=== PATIENT | female | born 1965 | race Caucasian/White ===

== ENCOUNTER 2019-12-22 06:28 | Day surgery (SDC) | payer BC ==
[~2019-12-22 06:28] MED LIST: Lactated Ringers 1,000 ML IV SCH; Lidocaine 1%/Sod Bicarbonate in NS 8.4% 1 ML Syringe IDERM PRN; Sodium Chloride 0.9% 10 ML Syringe FLUSH PRN
--- NOTE | 2019-12-22 07:07 | PCM.PREANE ---
Preanesthetic Assessment - Procedure Proposed Procedure: Left knee video arthroscopy - Anesthesia/Transfusion/Family Hx Anesthesia History: Prior Anesthesia Without Reaction Family History of Anesthesia Reaction: No Transfusion History: No Prior Transfusion(s) - Review of Systems General: No Symptoms Pulmonary: No Symptoms Cardiovascular: No Symptoms Gastrointestinal: No Symptoms Neurological: No Symptoms Other: Reports: Thyroid Problems (partial thyroid ectomy) - Physical Assessment NPO Status Date: 12/21/19 NPO Status Time: 00:00 Vital Signs: Last Vital Signs Temp 37.4 C 12/22/19 06:30 Pulse 63 12/22/19 06:30 Resp 16 12/22/19 06:30 BP 129/81 12/22/19 06:30 Pulse Ox 98 12/22/19 06:30 Height: 1.65 m Weight: 73.936 kg ASA Class: 2 Mental Status: Alert & Oriented x3 Airway Class: Mallampati = 1 Dentition: Reports: Normal Dentition, [place](s) Thyro-Mental Finger Breadths: 3 Mouth Opening Finger Breadths: 3 ROM/Head Extension: Full Lungs: Clear to Auscultation, Normal Respiratory Effort Cardiovascular: Regular Rate, Regular Rhythm - Lab Values: Laboratory Last Values MRSA (PCR) Negative 12/14/19 15:20 - Allergies Allergies/Adverse Reactions: Allergies Allergy/AdvReac Type Severity Reaction Status Date / Time Penicillins Allergy Cannot Verified 12/21/19 14:14 Remember - Anesthesia Plan Pre-Op Medication Ordered: None - Acknowledgements Anesthesia Type Planned: General Anesthesia Pt an Appropriate Candidate for the Planned Anesthesia: Yes Alternatives and Risks of Anesthesia Discussed w Pt/Guardian: Yes Pt/Guardian Understands and Agrees with Anesthesia Plan: Yes PreAnesthesia Questionnaire HEENT History: Reports: Other (See Below) Other HEENT History: tongue nodules, wears contacts Cardiovascular History: Reports: None Respiratory History: Reports: Other (See Below) Other Respiratory History: cough Gastrointestinal History: Reports: None Genitourinary History: Reports: None 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 (See Below) Other OB/BYN History: left sided pelvic swelling, vaginal dryness and pain Musculoskeletal History: Reports: Other (See Below) Other Musculoskeletal History: right knee pain, left meniscus injury, popliteal cyst, rotator cuff syndrome, left knee MCL and PCL repair Neurological History: Reports: None Psychiatric History: Reports: None Hematologic History: Reports: None Immunologic History: Reports: None Oncologic (Cancer) History: Reports: None Dermatologic History: Reports: Other (See Below) Other Dermatologic History: change in mole, nevus of face and finger, onchomycosis, rash - Infectious Disease History Infectious Disease History: Reports: None - Past Surgical History Head Surgeries/Procedures: Reports: None HEENT Surgical History: Reports: None Cardiovascular Surgical History: Reports: None Respiratory Surgical History: Reports: None GI Surgical History: Reports: Appendectomy Female Surgical History: Reports: Hysterectomy Male Surgical History: Reports: None Endocrine Surgical History: Reports: Other (See Below) Other Endocrine Surgeries/Procedures: partial thyroidectomy due to goiter Neurological Surgical History: Reports: None Musculoskeletal Surgical History: Reports: Arthroscopic Knee Oncologic Surgical History: 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 Transplant Dermatological Surgical History: Reports: None - SUBSTANCE USE Tobacco Use Status *Q: Never Tobacco User Tobacco Use Within Last Twelve Months: No Second Hand Smoke Exposure: No Days Per Week of Alcohol Use: 1 Number of Drinks Per Day: 0 Total Drinks Per Week: 0 Recreational Drug Use History: No - HOME MEDS Home Medications: Home Meds Cider Vinegar [Apple Cider Vinegar] 500 mg PO DAILY 12/21/19 [History] Acetaminophen/HYDROcodone [[place] 325-5 MG] 1 - 2 tab PO Q6H PRN #12 tablet 12/22/19 [Rx] Aspirin [Aspirin EC] 325 mg PO BID #84 tab 12/22/19 [Rx] - CURRENT (IN HOUSE) MEDS Current Meds: Current Medications Lactated Ringer's (Ringers, Lactated) 1,000 mls @ 125 mls/hr IV ASDIRECTED PHIL Stop: 12/22/19 23:00 Lidocaine/Sodium Bicarbonate (Buffered Lidocaine 1% In Ns 8.4%) 0.25 ml IDERM ONETIME PRN PRN Reason: Prior to IV Start Stop: 12/22/19 18:00 Sodium Chloride (Saline Flush) 10 ml FLUSH ASDIRECTED PRN PRN Reason: Keep Vein Open Stop: 12/22/19 18:00 Discontinued Medications Bupivacaine HCl (Sensorcaine-Mpf 0.25%) Confirm Administered Dose 10 ml .ROUTE .STK-MED ONE Stop: 12/22/19 06:33
[2019-12-22] MEDS ORDERED: Ondansetron 4 MG/2 ML SDV ONE (07:12)
[2019-12-22] MEDS ORDERED: Lidocaine 1% 4 ML ONE (07:13)
[2019-12-22] MEDS ORDERED: Ketorolac 30 MG/ML SDV ONE (07:13)
[2019-12-22] MEDS ORDERED: Propofol 200 MG/20 ML SDV ONE (07:13)
[2019-12-22] MEDS ORDERED: fentaNYL 250 MCG/5 ML SDV ONE (07:13)
[2019-12-22] MEDS ORDERED: Midazolam 1 MG/ML 2 ML SDV ONE (07:13)
[2019-12-22] MEDS ORDERED: ceFAZolin 1 GM Vial ONE (07:15)
[2019-12-22] MEDS ORDERED: EPINEPHrine 1 MG/ML 30 ML MDV IRR SCH (07:15)
[2019-12-22] MEDS ORDERED: Lactated Ringers 1,000 ML ONE (07:50)
[2019-12-22] MEDS: Bupivacaine 0.25% 10 ML SDV ONE ×2 (08:03→09:10)
[2019-12-22] MEDS ORDERED: fentaNYL 100 MCG/2 ML SDV IVPUSH PRN (08:30)
--- NOTE | 2019-12-22 08:31 | PCM.POSTAN ---
POST ANESTHESIA ASSESSMENT - MENTAL STATUS Mental Status: Alert, Oriented - VITAL SIGNS Vital Signs: Last Vital Signs Temp 37.4 C 12/22/19 06:30 Pulse 63 12/22/19 06:30 Resp 16 12/22/19 06:30 BP 129/81 12/22/19 06:30 Pulse Ox 98 12/22/19 06:30 - RESPIRATORY Respiratory Status: Respiratory Rate WNL, Airway Patent, O2 Saturation Stable - CARDIOVASCULAR CV Status: Pulse Rate WNL, Blood Pressure Stable - GASTROINTESTINAL GI Status: No Symptoms - PAIN Pain Score: 0 - POST OP HYDRATION Hydration Status: Adequate & Stable - OBSERVATIONS Free Text/Narrative:: no anesthesia complications noted
[2019-12-22] MEDS ORDERED: Acetaminophen/HYDROcodone 325-5 MG Tab PO PRN (09:40)
--- NOTE | 2020-01-04 15:05 | PCM.OPNOTE ---
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
--- NOTE | 2020-01-05 09:01 | OR ---
DATE OF OPERATION: 12/22/2019 SURGEON: Froylan Cabezas MD OPERATION PERFORMED: Left knee video arthroscopy with chondroplasty of the patella, medial femoral condyle, and partial synovectomy. PREOPERATIVE DIAGNOSIS: Left knee medial meniscus tear with chondromalacia. 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 ANESTHESIA: General LMA with local. ANESTHESIA PROVIDER: Alfredo Oviedo CRNA. BETTING CLERK: Migdalia Joe PA-C. ESTIMATED BLOOD LOSS: Less 5 mL. COMPLICATIONS: None. CONDITION: Stable. DESCRIPTION OF PROCEDURE: The patient was identified in the preop holding area. Proper site was marked and identified by the surgeon. The patient was taken back to the operating theater where after adequate anesthesia, the patient's right lower extremity was placed in a well leg james. Left lower extremity had a nonsterile tourniquet applied and was placed in a C-clamp james. Foot of the bed was then lowered. Left lower extremity was then sterilely prepped and draped in the usual sterile fashion. OR time-out was performed. The patient received 2 g IV Ancef. At this time, the left lower extremity was exsanguinated and tourniquet was insufflated to 250 mmHg. Standard anterolateral portal incision was made. Scope trocar was introduced to the knee joint. The patient was noted to have grade 3 chondromalacia of the patellofemoral joint as well as significant synovitis and overgrowth of the fat pad anteriorly. Attention was turned to the medial compartment. With the use of a spinal needle, anteromedial portal was created. The probe was introduced. The patient was noted to have no tear really of the medial meniscus, but she was noted to have grade 2/3 chondromalacia of the medial femoral condyle. At this time, a chondroplasty of the medial femoral condyle was undertaken showing large areas both posteriorly and anteriorly on the medial femoral condyle. ACL was intact in the notch. Lateral compartment showed just grade 1 chondromalacia. At this time, a partial synovectomy was performed in the anterior aspect of the knee and a chondroplasty of the patella was undertaken back to a stable rim. Excess saline was drained from the knee. 3-0 nylon suture was used for closure of the skin. 0.25% Marcaine was injected around the incisional sites and the patient was placed in a sterile soft dressing and sent to PACU in stable condition. MMODAL /[id number]
== END 2019-12-22 10:13 | disposition home or self-care (01) ==
LOC: JD.SDS 06:28
PROVIDERS: ATTEND Orthopaedic Surgery
DX: M22.42 Chondromalacia patellae, left knee (principal); M65.862 Other synovitis and tenosynovitis, left lower leg; S83.242A Other tear of medial meniscus, current injury, left knee, initial encounter; Z88.0 Allergy status to penicillin; Z79.82 Long term (current) use of aspirin; Z79.899 Other long term (current) drug therapy; Z98.890 Other specified postprocedural states
CPT/HCPCS: 29875; 87641; A9270; J0690; J1885; J2001; J2250; J2405; J2704; J3010; J3490; J7120; 01400

== ENCOUNTER 2020-02-29 08:54 | Day surgery (SDC) | payer BC, OTHER ==
[~2020-02-29 08:54] MED LIST changes: +Lidocaine 1% 4 ML ONE; +Propofol 200 MG/20 ML SDV ONE; +fentaNYL 100 MCG/2 ML SDV ONE
--- NOTE | 2020-02-29 09:35 | PCM.PREANE ---
Preanesthetic Assessment - Procedure Proposed Procedure: Screening Colonoscopy - Anesthesia/Transfusion/Family Hx Anesthesia History: Prior Anesthesia Without Reaction Family History of Anesthesia Reaction: No Transfusion History: No Prior Transfusion(s) Intubation History: Unknown - Review of Systems General: No Symptoms Pulmonary: No Symptoms (ETOH: occasionally) Cardiovascular: No Symptoms Gastrointestinal: No Symptoms, Constipation Neurological: No Symptoms Other: Reports: Easy Bruising, Thyroid Problems (partial thyroidectomy) - Physical Assessment NPO Status Date: 02/28/20 NPO Status Time: 14:30 (Peanut butter sandwich/Dr. Telles aware.) Vital Signs: HR: 62 B/P: 144/90 Sat: 99% Temp: 98.7 Resp: 16 Height: 1.65 m Weight: 75 kg ASA Class: 2 Mental Status: Alert & Oriented x3 Airway Class: Mallampati = 2 Dentition: Reports: Normal Dentition, [place] Thyro-Mental Finger Breadths: 3 Mouth Opening Finger Breadths: 3 ROM/Head Extension: Full Lungs: Clear to Auscultation, Normal Respiratory Effort Cardiovascular: Regular Rate, Regular Rhythm, No Murmurs - Lab Values: All labs reviewed and noted and within acceptable ranges to proceed with scheduled procedure. - Allergies Allergies/Adverse Reactions: Allergies Allergy/AdvReac Type Severity Reaction Status Date / Time Penicillins Allergy Cannot Verified 02/29/20 05:32 Remember - Anesthesia Plan Pre-Op Medication Ordered: None - Acknowledgements Anesthesia Type Planned: MAC Pt an Appropriate Candidate for the Planned Anesthesia: Yes Alternatives and Risks of Anesthesia Discussed w Pt/Guardian: Yes Pt/Guardian Understands and Agrees with Anesthesia Plan: Yes PreAnesthesia Questionnaire HEENT History: Reports: Other (See Below) Other HEENT History: tongue nodules, wears contacts Cardiovascular History: Reports: None Respiratory History: Reports: Other (See Below) Other Respiratory History: cough Gastrointestinal History: Reports: None Genitourinary History: Reports: UTI, Recurrent 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: Other (See Below) Other OB/BYN History: left sided pelvic swelling, vaginal dryness and pain Musculoskeletal History: Reports: Other (See Below) Other Musculoskeletal History: right knee pain, left meniscus injury, popliteal cyst, rotator cuff syndrome, left knee MCL and PCL repair Neurological History: Reports: None Psychiatric History: Reports: None Hematologic History: Reports: None Immunologic History: Reports: None Oncologic (Cancer) History: Reports: None Dermatologic History: Reports: Other (See Below) Other Dermatologic History: change in mole, nevus of face and finger, onchomycosis, rash - Infectious Disease History Infectious Disease History: Reports: None - Past Surgical History Head Surgeries/Procedures: Reports: None HEENT Surgical History: Reports: None Cardiovascular Surgical History: Reports: None Respiratory Surgical History: Reports: None GI Surgical History: Reports: Appendectomy Female Surgical History: Reports: Hysterectomy Male Surgical History: Reports: None Endocrine Surgical History: Reports: Other (See Below) Other Endocrine Surgeries/Procedures: partial thyroidectomy due to goiter Neurological Surgical History: Reports: None Musculoskeletal Surgical History: Reports: Arthroscopic Knee Oncologic Surgical History: Reports: None Dermatological Surgical History: Reports: None - SUBSTANCE USE Tobacco Use Status *Q: Never Tobacco User - HOME MEDS Home Medications: Home Meds Hyaluronic Acid, Hydrolyzed [Hydrolyzed Hyaluronic Acid] 1 dose VAG ASDIRECTED 02/29/20 [History] - CURRENT (IN HOUSE) MEDS Current Meds: Current Medications Lactated Ringer's (Ringers, Lactated) 1,000 mls @ 125 mls/hr IV ASDIRECTED PHIL Lidocaine/Sodium Bicarbonate (Buffered Lidocaine 1% In Ns 8.4%) 0.25 ml IDERM ONETIME PRN PRN Reason: Prior to IV Start Sodium Chloride (Saline Flush) 10 ml FLUSH ASDIRECTED PRN PRN Reason: Keep Vein Open Discontinued Medications Fentanyl (Sublimaze) Confirm Administered Dose 100 mcg .ROUTE .STK-MED ONE Stop: 02/29/20 08:09 Lidocaine HCl (Xylocaine-Mpf 1%) Confirm Administered Dose 4 mls @ as directed .ROUTE .STK-MED ONE Stop: 02/29/20 08:09 Propofol (Diprivan 20 Ml) Confirm Administered Dose 200 mg .ROUTE .STK-MED ONE Stop: 02/29/20 08:09
[2020-02-29] MEDS ORDERED: Propofol 200 MG/20 ML SDV ONE ×3 (09:50→10:25)
[2020-02-29] MEDS ORDERED: Lactated Ringers 1,000 ML ONE (10:12)
--- NOTE | 2020-02-29 10:41 | PCM.PRNOTE ---
- Free Text/Narrative Note: Date: 02/29/2020 Procedure: screening colonoscopy Endoscopist: Bradley Telles MD Findings: fair prep. Difficult colonoscopy with apparent volvulus at ascending colon. Appendiceal orifice visualized and terminal ileum intubated. No polyps identified. Prominent internal hemorrhoids. Detailed Report: The patient was taken to the endoscopy suite and placed in left lateral decubitus position. Timeout was performed, and monitored anesthesia care was initiated. Visual inspection of the anus revealed no gross abnormality. Digital rectal exam was unremarkable. The colonoscope was inserted and advanced all the way to the cecum. This was challenging due to redundancy and type terms of the colon. There appeared to be a partial twisting of the ascending colon suggestive of volvulus. The scope was passed beyond this point and the appendiceal orifice was visualized. The terminal ileum was intubated. Prep was okay, the patient had eaten part of a sandwich yesterday. The scope was slowly withdrawn and mucosal surfaces were carefully inspected. No polyps were identified. No diverticular disease was appreciated. On retroflexion of the scope within the rectum, prominent hemorrhoids were noted. There were a few very small hyperplastic appearing polyps in the rectum and sigmoid, these were not biopsied. Air was suctioned from the colon prior to withdrawal, the patient tolerated the procedure well.
--- NOTE | 2020-02-29 10:42 | PCM48HPAN ---
Post Anesthesia Note - EVALUATION WITHIN 48HRS OF ANESTHETIC Vital Signs in Normal Range: Yes Patient Participated in Evaluation: Yes Respiratory Function Stable: Yes Airway Patent: Yes Cardiovascular Function Stable: Yes Hydration Status Stable: Yes Pain Control Satisfactory: Yes Nausea and Vomiting Control Satisfactory: Yes Mental Status Recovered: Yes Vital Signs: Last Vital Signs Temp 36.6 C 02/29/20 10:31 Pulse 74 02/29/20 10:31 Resp 14 02/29/20 10:31 BP 102/71 02/29/20 10:31 Pulse Ox 94 L 02/29/20 10:31
== END 2020-02-29 11:31 | disposition home or self-care (01) ==
LOC: JD.SDS 08:54
PROVIDERS: ATTEND Surgery
DX: Z12.11 Encounter for screening for malignant neoplasm of colon (principal); K64.8 Other hemorrhoids; K56.2 Volvulus; Z88.0 Allergy status to penicillin; Z90.49 Acquired absence of other specified parts of digestive tract
CPT/HCPCS: 45378; J2001; J2704; J3010; J7120; 00812

== ENCOUNTER 2023-10-20 08:58 | Emergency (ER) | payer OTHER ==
[2023-10-20] MEDS ORDERED: Sodium Chloride 0.9% 10 ML Syringe FLUSH PRN (09:19)
[2023-10-20 09:50] LABS: BASOPHILS PERCENT AUTO 0.2 % (0.0-1.0); EOSINOPHILS PERCENT AUTO 0.5 % (0.0-6.0); HEMATOCRIT 42.6 % (37.0-47.0); IMMATURE GRAN ABSOLUTE AUTO 0.01 K/mm3 (0.00-0.05); IMMATURE GRAN PERCENT AUTO 0.2 % (0.0-0.4); LYMPHOCYTES ABSOLUTE AUTO 1.1 K/mm3 (1.0-4.8); LYMPHOCYTES PERCENT AUTO 16.7 % (24.0-44.0); MEAN CORPUSCULAR HEMOGLOBIN 29.5 pg (28.0-32.0); MEAN CORPUSCULAR HGB CONC 32.9 g/dl (32.0-36.0); MEAN CORPUSCULAR VOLUME 89.7 fl (83.0-99.0); MEAN PLATELET VOLUME 9.4 fl (9.4-12.3); MONOCYTES ABSOLUTE AUTO 0.3 K/mm3 (0.0-0.8); MONOCYTES PERCENT AUTO 5.2 % (0.0-8.0); NEUTROPHILS ABSOLUTE AUTO 5.1 K/mm3 (1.8-7.7); NEUTROPHILS PERCENT AUTO 77.2 % (41.0-71.0); PLATELET COUNT,PLT 189 K/mm3 (150-400); RED BLOOD CELL COUNT 4.75 M/mm3 (4.10-5.30); WHITE BLOOD CELL COUNT,WBC 6.59 K/mm3 (3.9-11.3)
[2023-10-20 10:02] LABS: A/G RATIO 1.3 (1-2); ALBUMIN 4.2 g/dl (3.4-5.0); ANION GAP 11.3 (5-15); BILIRUBIN TOTAL 0.4 mg/dL (0.2-1.0); BUN/CREATININE RATIO 12.5 (14-18); CREATININE 0.8 mg/dL (0.55-1.02); EST CRCL DRUG DOSING (CG) 68.13 mL/min; POTASSIUM,K 3.3 mEq/L (3.5-5.1); PROTEIN TOTAL,TP 7.5 g/dl (6.4-8.2); TSH 8.677 uIU/mL (0.358-3.74)
[2023-10-20 10:19] LABS: T4 FREE 0.94 ng/dL (0.76-1.46)
[2023-10-20 11:13] LABS: APPEARANCE,URINE CLEAR (Clear); BILIRUBIN,URINE NEGATIVE (Negative); COLOR,URINE YELLOW (Yellow); GLUCOSE,URINE NEGATIVE (Negative); KETONES,URINE NEGATIVE (Negative); LEUKOCYTE ESTERASE,URINE NEGATIVE (Negative); NITRITE,URINE NEGATIVE (Negative); OCCULT BLOOD,URINE NEGATIVE (Negative); PH,URINE 7.5 (5.0-8.0); PROTEIN,URINE NEGATIVE (Negative); UROBILINOGEN,URINE 0.2 (0.2-1.0)
[2023-10-20] MEDS: Sodium Chloride 0.9% 10 ML Syringe FLUSH PRN (13:16)
[2023-10-20] MEDS: Gadobenate Dimeglumine 529 MG/ML 20 ML SDV IVPUSH ONE (13:16)
[2023-10-20 14:52] LABS: INR 0.98; PROTHROMBIN TIME 10.4 SECONDS (9.7-12.0)
[2023-10-20 14:53] LABS: PTT,PARTIAL THROMBOPLSTIN TIME 27.1 SECONDS (21.7-31.4)
[2023-10-20] MEDS: Heparin Sodium/D5W 25,000 UNITS/500 ML BAG IV SCH (15:19)
[2023-10-20] MEDS: Heparin Sodium 5,000 Units/ML Vial IVPUSH ONE (15:20)
== END 2023-10-20 20:35 ==
LOC: JD.ED 08:58
DX: G08 Intracranial and intraspinal phlebitis and thrombophlebitis (principal); R41.3 Other amnesia; Z88.0 Allergy status to penicillin
CPT/HCPCS: 36415; 70450; 70546; 70553; 80053; 81003; 82947; 84439; 84443; 85025; 85610; 85730; 93005; A9577; J1644; J3490; 93010; 96365; 96366; 99285; 99285-25